=== PATIENT | male | born 1965 | race Caucasian/White ===

== ENCOUNTER → 2017-11-17 | Outpatient (CLI) | payer OTHER | LOC: BMCIMAGING 10:17 | PROVIDERS: ATTEND Internal Medicine | DX: R05 Cough (principal); R50.9 Fever, unspecified ==

== ENCOUNTER → 2019-01-21 | Outpatient (CLI) | payer OTHER | LOC: BMCIMAGING 09:56 | PROVIDERS: ATTEND Internal Medicine | DX: M89.371 Hypertrophy of bone, right ankle and foot (principal) ==